=== PATIENT | male | born 1980 ===

== ENCOUNTER 2022-06-25 03:18 | Emergency (ER) | payer OTHER ==
[2022-06-25 03:53] LABS: #Basophils 0.1 thou/uL (0.0-0.2); #Eosinphils 0.1 thou/uL (0.0-0.7); #Lymphocytes 2.5 thou/uL (1.20-3.40); #Monocytes 0.5 thou/uL (0.11-0.59); #Neutrophils 4.2 thou/uL (1.40-6.50); %Basophils 1.3 % (0.0-1.0); %Eosinophils 1.9 % (0.0-10.0); %Lymphocytes 33.5 % (21.0-51.0); %Monocytes 6.7 % (0.0-10.0); %Neutrophils 56.6 % (42.0-75.0); Hemoglobin 15.5 g/dL (14.0-18.0); Mean Corpuscular Hemoglobin 29.3 pg (27.0-31.0); Mean Corpuscular Volume 86.2 fl (78.0-98.0); Mean Platelet Volume 7.3 fL (7.4-10.4); Platelet Count 232 10x3/uL (130-400); RBC Distribution Width 13.6 % (11.5-14.5); Red Blood Cell (RBC) Count 5.29 mill/uL (4.70-6.10); White Blood Cell (WBC) Count 7.4 10x3/uL (4.8-10.8)
[2022-06-25 04:17] LABS: ALT (SGPT) 18 U/L (8-55); AST (SGOT) 25 U/L (5-34); Albumin 4.3 g/dL (3.5-5.0); Alkaline Phosphatase 124 U/L (40-110); Anion Gap 11 mmol/L (10-20); BUN (Urea Nitrogen) 23 mg/dL (8.9-20.6); Bilirubin, Total 0.4 mg/dL (0.2-1.2); Calc. Creatinine Clearance 0 mL/min (70-130); Calcium 9.4 mg/dL (7.8-10.44); Carbon Dioxide 23 mmol/L (22-29); Chloride 108 mmol/L (98-107); Estimated GFR 72; Globulin 2.9 g/dL (2.4-3.5); Glucose 134 mg/dL (70-105); Potassium 3.2 mmol/L (3.5-5.1); Protein, Total 7.2 g/dL (6.0-8.3); Sodium 139 mmol/L (136-145)
[2022-06-25] MEDS ORDERED: Ondansetron PF 4 MG/2 ML Vial ONE ×2 (04:45→06:08)
[2022-06-25] MEDS ORDERED: Morphine 4 MG/ML VIAL ONE (04:45)
[2022-06-25] MEDS ORDERED: Boostrix 0.5 ML (Tdap) VIAL (>/=7 yrs of age) ONE (06:29)
[2022-06-25] MEDS ORDERED: Iopamidol-370 76% 500 ML 1 ML ONE (10:23)
== END 2022-06-25 06:57 | disposition home or self-care (01) ==
LOC: ERS 03:18
DX: S02.2XXA Fracture of nasal bones, initial encounter for closed fracture (principal); S80.812A Abrasion, left lower leg, initial encounter; S60.512A Abrasion of left hand, initial encounter; S30.811A Abrasion of abdominal wall, initial encounter; S80.811A Abrasion, right lower leg, initial encounter; I10 Essential (primary) hypertension; V43.52XA Car driver injured in collision with other type car in traffic accident, initial encounter; Y92.410 Unspecified street and highway as the place of occurrence of the external cause; Z23 Encounter for immunization
CPT/HCPCS: 70450; 70486; 71045; 71260; 72125; 74177; 80053; 85025; 90471; 90715; 96374; 96375; 96376; G0390; J2270; J2405; Q9967